=== PATIENT | female | born 1980 | race Caucasian/White ===

== ENCOUNTER 2021-02-12 16:46 | Emergency (ER) | payer BC ==
[~2021-02-12 16:46] MED LIST: ABILIFY 5 MG TAB5 MG PO; BENTYL 10MG CAP10 MG PO; LEXAPRO5 MG PO; ZOFRAN4 MG PO
[2021-02-12 18:44] LABS: HEMOGLOBIN 12.5 gm/dl (12.3-15.3); RED BLOOD COUNT 4.02 M/UL (4.00-5.10); WHITE BLOOD COUNT 7.5 K/UL (4.5-11.0)
[2021-02-12 18:59] LABS: BUN/CREATININE RATIO 28 (0-10)
== END 2021-02-12 21:18 | disposition home or self-care (01) ==
LOC: ER1 16:46
PROVIDERS: Preventive Medicine Occupational Medicine
DX: B34.9 Viral infection, unspecified (principal)
CPT/HCPCS: 71045; 80053; 81001; 82550; 82553; 82962; 83874; 84484; 85025; 85379; 85652; 86140; 87086; 93005; 96374; 99284; J2060; J7030; Q9967

== ENCOUNTER → 2021-07-20 | Outpatient (CLI) | payer BC | LOC: KOH-I 13:45 → EMI 14:30 | DX: M46.1 Sacroiliitis, not elsewhere classified (principal); M51.36 Other intervertebral disc degeneration, lumbar region | CPT/HCPCS: 72148; 72195 ==

== ENCOUNTER → 2021-08-24 | Outpatient (CLI) | payer BC | LOC: KOH-I 16:07 | DX: M79.672 Pain in left foot (principal); M79.671 Pain in right foot | CPT/HCPCS: 73630 ==

== ENCOUNTER → 2021-08-30 | Outpatient (CLI) | payer BC | LOC: KOH-I 08:00 | DX: M72.2 Plantar fascial fibromatosis (principal); M65.9 Synovitis and tenosynovitis, unspecified | CPT/HCPCS: 73718 ==

== ENCOUNTER → 2021-12-07 | Outpatient (CLI) | payer BC | LOC: KOH-I 16:05 | DX: M79.671 Pain in right foot (principal); M79.672 Pain in left foot | CPT/HCPCS: 73630 ==

== ENCOUNTER 2021-12-29 04:27 | Emergency (ER) | payer BC ==
[2021-12-29 05:31] LABS: HEMOGLOBIN 12.7 gm/dl (12.3-15.3); RED BLOOD COUNT 4.15 M/UL (4.00-5.10); WHITE BLOOD COUNT 6.4 K/UL (4.5-11.0)
[2021-12-29 05:55] LABS: BUN/CREATININE RATIO 18 (0-10)
== END 2021-12-29 09:10 | disposition home or self-care (01) ==
LOC: ER1 04:27
PROVIDERS: Physician Assistant
DX: R10.9 Unspecified abdominal pain (principal)
CPT/HCPCS: 80053; 81001; 83690; 84703; 85025; 85379; 87086; 96374; 96375; 99284; J2270; J2405; Q9967